=== PATIENT | female | born 1990 | race Caucasian/White ===

== ENCOUNTER 2017-07-08 16:14 | Emergency (ER) | payer MEDICARE, OTHER ==
[~2017-07-08] VITALS: Ht 152.4 cm; Wt 72.6 kg
[2017-07-08 16:32] VITALS: BP 133/73
--- NOTE | 2017-07-08 17:00 | PHYS DOC ---
Past Medical History Past Medical History: Other Additional Past Medical Histor: cerebral palsy Past Surgical History: Other Additional Past Surgical Histo: R wrist fusion, scoliosis Alcohol Use: None Drug Use: None Adult General Chief Complaint Chief Complaint: MECHANICAL FALL [facility] HPI 26-year-old female with a history of cerebral palsy wheelchair bound now brought in for evaluation after a minor head injury. Patient was being transported when her wheelchair fell backwards inside her transport van, and she struck the back of her head. Patient felt woozy after the incident that did not lose consciousness. She reports that her neck is sore. Per dad who is present with her she has been at her baseline mental status since the event. Other than scalp soreness mild headache and neck discomfort she has no complaints. Denies spinal pain chest wall pain or extremity pain. Review of Systems Review of Systems Constitutional: Denies fever or chills [] Eyes: Denies change in visual acuity, redness, or eye pain [] HENT: Denies nasal congestion or sore throat [] Respiratory: Denies cough or shortness of breath [] Cardiovascular: No additional information not addressed in HPI [] GI: Denies abdominal pain, nausea, vomiting, bloody stools or diarrhea [] : Denies dysuria or hematuria [] Musculoskeletal: Denies back pain or joint pain [] Integument: Denies rash or skin lesions [] Neurologic: Denies headache, focal weakness or sensory changes [] Endocrine: Denies polyuria or polydipsia [] Allergies Allergies Allergies Coded Allergies Type Severity Reaction Last Updated Verified codeine Allergy Mild 07/08/17 Yes Physical Exam Physical Exam Well-appearing smiling 26-year-old female wheelchair bound with contractures but alert cheerful communicative and cooperative at her mental status baseline per father. Mild soft tissue tenderness occipital scalp with no hematoma bony tenderness or crepitus. No Gr sign no hemotympanum bilaterally. Patient with mild soft tissue tenderness paraspinal posterior neck with no midline tenderness step off or bony abnormality. C-collar in place and in-line immobilization performed during exam with collar replaced. Clear lungs regular rate and rhythm no tachycardia and no chest wall tenderness no spinal tenderness and extremities at baseline of contracture and chronic disability/ atrophy Constitutional: Well developed, well nourished, no acute distress, non-toxic appearance. [] HENT: Normocephalic, atraumatic, bilateral external ears normal, oropharynx moist, no oral exudates, nose normal. [] Eyes: PERRLA, EOMI, conjunctiva normal, no discharge. [] Neck: Normal range of motion, no tenderness, supple, no stridor. [] Cardiovascular:Heart rate regular rhythm, no murmur [] Lungs & Thorax: Bilateral breath sounds clear to auscultation [] Abdomen: Bowel sounds normal, soft, no tenderness, no masses, no pulsatile masses. [] Skin: Warm, dry, no erythema, no rash. [] Back: No tenderness, no CVA tenderness. [] Extremities: No tenderness, no cyanosis, no clubbing, ROM intact, no edema. [] Neurologic: Alert and oriented at baseline mental status per day, baseline motor function, normal sensory function, no focal deficits noted. [] Psychologic: Affect normal, judgement normal, mood normal. [] Current Patient Data Vital Signs Vital Signs Date Time Temp Pulse Resp B/P (MAP) Pulse Ox O2 Delivery O2 Flow Rate FiO2 07/08/17 16:32 98.0 107 16 133/73 (93) 95 Room Air 98.0 EKG EKG [] Radiology/Procedures Radiology/Procedures CT head and C-spine pending [] Course & Med Decision Making Course & Med Decision Making Pertinent Labs and Imaging studies reviewed. (See chart for details) Signs and symptoms consistent with minor head injury and cervical strain and wheelchair-bound patient without loss of consciousness. Nonfocal neurologic exam except for patient's chronic disabilities. She is alert and cheerful. CT of the head and C-spine pending. If results are unremarkable no further workup or treatment will be indicated. Dad and patient agree with outpatient follow-up and strict return precautions will be given. [] Dragon Disclaimer Dragon Disclaimer This electronic medical record was generated, in whole or in part, using a voice recognition dictation system. Departure Departure Impression: Primary Impression: Closed head injury Additional Impressions: Mild concussion Scalp contusion Cervical strain Disposition: 01 HOME, SELF-CARE Condition: STABLE Patient Instructions: Cervical Strain and Sprain with Rehab-SportsMed, Concussion and Brain Injury, Facial or Scalp Contusion, Head Injury, Adult Additional Instructions: Alla has suffered a minor head injury with a very mild concussion today. Her CAT scan showed no fracture or bleeding. The CAT scan of her neck shows no fracture however her soreness suggest that she has neck muscle strain. The mild soft tissue tenderness of the back of her scalp suggest that she has a contusion which is a bruise but she does not have any significant swelling. If her scalp is sore apply an ice pack today. If she has any discomfort of her head or neck she can take ibuprofen 600 mg every 6 hours and Tylenol every 4 hours as needed. Follow-up with her doctor tomorrow and return immediately for new severe or worsening symptoms. Problem Qualifiers KATLIN CACERES MD Jul 08, 2017 17:00
--- NOTE | 2017-07-08 17:30 | RAD ---
CT head without intravenous contrast History: Fall, trauma to head, headache and neck pain. Comparison: None. Technique: Axial images are obtained of the head from the skull base through the vertex without IV contrast. Exposure: One or more of the following individualized dose reduction techniques were utilized for this examination: 1. Automated exposure control 2. Adjustment of the mA and/or kV according to patient size 3. Use of iterative reconstruction technique Findings: There is moderate cerebral volume loss, which appears to be affecting the bilateral parietal lobes to greatest degree. There is compensatory dilatation of the lateral ventricles.. No obvious intracranial mass, mass-effect, midline shift, hemorrhage or obvious acute infarction is identified. Basilar cisterns are patent. Bone windows demonstrate no acute calvarial abnormality. The visualized paranasal sinuses appear clear. Impression: 1. No acute intracranial process. 2. Significant atrophy. CT cervical spine Comparison: None. Technique: Noncontrast CT of the cervical spine was performed using helical technique. Axial, sagittal, coronal reconstructions were obtained. Exposure: One or more of the following individualized dose reduction techniques were utilized for this examination: 1. Automated exposure control 2. Adjustment of the mA and/or kV according to patient size 3. Use of iterative reconstruction technique Findings: There is no evidence of acute fracture or acute malalignment involving the cervical spine. No prevertebral soft tissue swelling is identified. There is mild dextroconvex curvature of the cervical spine. Impression: No evidence of acute traumatic injury involving the cervical spine. Electronically signed by: Ha Treadwell MD (07/08/2017 5:26 PM) [facility]
[2017-07-08] MEDS ORDERED: IV NORMAL SALINE 1000ML BAG 1,000 ML IV SCH (17:57)
[2017-07-08] MEDS ORDERED: ACETAMINOPHEN 325 MG TABLET. PO ONE (18:00)
== END 2017-07-08 18:12 | disposition home or self-care (01) ==
LOC: ER 16:14
DX: S06.0X0A Concussion without loss of consciousness, initial encounter (principal); S13.4XXA Sprain of ligaments of cervical spine, initial encounter; G83.9 Paralytic syndrome, unspecified; W05.0XXA Fall from non-moving wheelchair, initial encounter; Y93.89 Activity, other specified; Y99.8 Other external cause status; Y92.89 Other specified places as the place of occurrence of the external cause
CPT/HCPCS: 70450; 72125; 99284-25

== ENCOUNTER → 2021-08-31 | Outpatient (CLI) | payer OTHER, MEDICARE ==
--- NOTE | 2021-08-31 08:53 | RAD ---
EXAMINATION: US ABDOMEN COMPLETE INDICATION: 31 years, Female, abdominal pain. History of cerebral palsy. COMPARISON: None TECHNIQUE: Grayscale, color Doppler and limited spectral Doppler images of the abdomen were obtained. FINDINGS: Technical difficult scanning due to patient's unable to move due to patient's condition and excessive bowel gas. LIVER: SIZE (LENGTH): 12.5 cm. ECHOGENICITY: Normal PARENCHYMA: Homogeneous echotexture. No discrete focal lesion. INTRAHEPATIC BILE DUCTS: Nondilated. PORTAL VEIN: Patent with normal hepatopedal flow. GALLBLADDER: GALLBLADDER WALL THICKNESS: 1.9 mm MORPHOLOGY: Normal morphology. No wall hyperemia or pericholecystic free fluid. LUMEN: Normal. COMMON BILE DUCT DIAMETER: 1.8 mm RIGHT KIDNEY: MEASURES: 9.4 cm in length. MORPHOLOGY/PARENCHYMA: Normal corticomedullary differentiation with no shadowing calculus or discrete masses. COLLECTING SYSTEM: No hydronephrosis. LEFT KIDNEY: MEASURES: 8.7 cm in length MORPHOLOGY/PARENCHYMA: Normal corticomedullary differentiation with no shadowing calculus or discrete masses. COLLECTING SYSTEM: No hydronephrosis. SPLEEN: SIZE (LENGTH): 9.4 cm PARENCHYMA: Unremarkable. PANCREAS: VISUALIZED PORTIONS: Head. APPEARANCE: Within normal limits. OTHER: RETROPERITONEUM, INFERIOR VENA CAVA: Normal caliber. AORTA: Normal caliber. FLUID:No free fluid. IMPRESSION: Unremarkable abdominal ultrasound. Electronically signed by: Lotus Tirado MD (08/31/2021 8:50 AM) [id number]
== END ==
LOC: US 06:42
PROVIDERS: ATTEND Family Medicine
DX: R10.9 Unspecified abdominal pain (principal)
CPT/HCPCS: 76700